=== PATIENT | female | born 1980 | race Caucasian/White ===

== ENCOUNTER 2016-12-28 16:40 | Inpatient (IN) | payer OTHER ==
[2016-12-28] MEDS ORDERED: NACL 0.9% 1000 ML 1,000 ML IV ONE ×2 (17:11→19:53)
[2016-12-28 17:43] LABS: Hemoglobin 8.2 gm/dl (10.1-14.3); Mean Corpuscular HGB Conc 34 % (30-34); Mean Corpuscular Hemoglobin 29 pg (28-32); Mean Corpuscular Volume 85 fl (79-97); Platelet Count 187 K/mm3 (140-440); Red Blood Count 2.82 M/mm3 (3.65-5.03); Red Cell Distribution Width 13.6 % (13.2-15.2); White Blood Count 11.2 K/mm3 (4.5-11.0)
[2016-12-28 18:29] LABS: Basophils % (Manual) 0 % (0.0-1.8); Blastocytes % (Manual) 0 %; Eosinophils % (Manual) 0 % (0.0-4.3); Total Cells Counted Percent 0
[2016-12-28 18:31] LABS: Anisocytosis 1+; Diff Status Complete; Large Platelets Few; Ovalocytes Few; Platelet Estimate Consistent w Auto
--- NOTE | 2016-12-28 18:49 | Ultrasound Report ---
FINAL REPORT EXAM: US OB \T\lt; = 14 WEEKS FETUS HISTORY: vag bleeding, TECHNIQUE: Transabdominal pelvic ultrasound was performed in multiple grayscale sonographic images were obtained of the uterus and adnexa PRIORS: Endovaginal ultrasound from 12/28/2016 FINDINGS: Uterus measures approximately 12.2 x 6.6 x 8 centimeters with endometrial stripe thickness measuring up to 30 millimeters. A gestational sac is not identified in the uterus, or elsewhere. Left ovary measures approximately 3.3 x 2.1 x 2 centimeters. There is an 18 millimeter cyst in the left ovary. Right ovary was not identified with certainty. IMPRESSION: 1. Endometrium appears thickened, but a gestational sac is not identified in the uterus, or elsewhere. Possibility of ectopic is not excluded. Recommend further evaluation with serial quantitative beta HCG and repeat ultrasound if indicated. 2. Nonvisualization of right ovary.
--- NOTE | 2016-12-28 18:49 | Ultrasound Report ---
FINAL REPORT EXAM: US OB TRANSVAGINAL HISTORY: vag bleeding, TECHNIQUE: Endovaginal ultrasound was performed in multiple grayscale sonographic images were obtained of the uterus and adnexa PRIORS: Transabdominal pelvic ultrasound from 12/28/2016 FINDINGS: Endometrial stripe thickness measures up to 3 centimeters. Gestational sac is not identified in the uterus or elsewhere in the images provided. Left ovary measures approximately 3 x 2.6 x 2.8 centimeters. There is an 18 millimeter cyst in the left ovary. Right ovary was not identified with certainty during the exam. IMPRESSION: 1. Endometrium appears thickened, but a gestational sac is not identified in the uterus, or elsewhere at this time. Possibility of ectopic is not excluded. Recommend further evaluation with serial quantitative beta HCG and repeat ultrasound if indicated. 2. Nonvisualization of right ovary. 3. Please refer to dictation from transabdominal pelvic ultrasound from 12/28/2016 for additional information.
--- NOTE | 2016-12-28 19:22 | Emergency Department Report ---
ED Female HPI - General Chief complaint: Vaginal Bleeding Stated complaint: MISCARRIAGE Time Seen by Provider: 12/28/16 17:10 Source: patient Mode of arrival: Ambulatory Limitations: Language Barrier - History of Present Illness Initial comments: 36 year old female presents to the hospital with vaginal bleeding. This is her third has 2 living children no previous miscarriages or abortions. Patient has been receiving care with [facility] in [place]. Patient had ultrasound showing a viable IUP but a subsequent ultrasound on the showed no heart tones. Patient was told she is having a miscarriage and the baby will pass. Today patient developed heavy vaginal bleeding and passed a fetus at home patient estimates that she was approximately 12 weeks . Patient has mild suprapubic pain at this time. She also reports multiple episodes of vomiting today with little by mouth intake. Patient's systolic pressure of 80 and a heart rate of 130. She received 2 L of normal saline and route. WILDLIFE PROTECTOR: [facility] in [place] - Related Data Previous Rx's Medication Instructions Recorded Last Taken Type Ibuprofen [Motrin] 800 mg PO Q8HR PRN #30 tablet 12/28/16 Unknown Rx Allergies Allergy/AdvReac Type Severity Reaction Status Date / Time No Known Allergies Allergy Verified 12/28/16 17:00 ED Review of Systems ROS: Stated complaint: MISCARRIAGE Other details as noted in HPI Comment: All other systems reviewed and negative Other: Constitutional: No fevers chills or weight loss Eyes: No eye pain visual changes or discharge ENT: No ear pain or throat pain Neck: Denies pain Respiratory: Denies cough wheezing shortness of breath Cardiovascular: Denies chest pain, palpitations, syncope Endocrine: Denies excessive sweating, intolerance to cold, increased thirst GI: As per HPI : As per HPI Musculoskeletal: Denies back pain, joint swelling Skin: Denies rash, lesions, erythema Neurologic: Denies headache, numbness. Generalized weakness Psychiatric: Denies suicidal ideation, hallucinations Hematological/lymphatic: Denies easy bruising, lymphadenopathy ED Past Medical Hx - Past Medical History Previous Medical History?: No - Surgical History Past Surgical History?: No - Social History Smoking Status: Never Smoker Substance Use Type: None - Medications Home Medications: Home Medications Medication Instructions Recorded Confirmed Last Taken Type Ibuprofen [Motrin] 800 mg PO Q8HR PRN #30 tablet 12/28/16 Unknown Rx ED Physical Exam - General Limitations: Language Barrier - Other Other exam information: General: No limitations, patient is alert in no acute distress Head exam: Atraumatic, normocephalic Eyes exam: Normal appearance, pupils equal reactive to light, extraocular movements intact ENT: Moist mucous membrane, normal oropharynx Neck exam: Normal inspection, full range of motion, no meningismus nontender Respiratory exam: Clear to auscultation bilateral, no wheezes, rales, crackles Cardiovascular: Normal rate and rhythm, normal heart sounds Abdomen: Soft, nondistended, and nontender, with normal bowel sounds, no rebound, or guarding Extremity: Full range of motion normal inspection no deformity Back: Normal Inspection, full range of motion, no tenderness Neurologic: Alert, oriented x3, cranial nerves intact, no motor or sensory deficit Psychiatric: normal affect, normal mood Skin: pale : Exam performed after discussion with CAR REFINISHER. Multiple large clots cleared from vaginal vault. bright red blood with moderate active bleeding ED Course Vital Signs 12/28/16 12/28/16 12/28/16 16:54 18:31 18:50 Temperature 98.0 F Pulse Rate 90 116 H Respiratory 19 18 18 Rate Blood Pressure 101/65 Blood Pressure 90/58 [Left] O2 Sat by Pulse 100 100 100 Oximetry 12/28/16 19:11 Temperature Pulse Rate 95 H Respiratory 18 Rate Blood Pressure Blood Pressure 116/78 [Left] O2 Sat by Pulse 100 Oximetry - Reevaluation(s) Reevaluation #1: 12/28/16 19:57 Clots were removed from vaginal vault. Patient had no pain to a clot removal however, patient developed significant pain afterwards. 0.5 of Dilaudid and Toradol 30 mg IV ordered. Additional normal saline ordered. Repeat CBC will be ordered. Patient be signed out to Dr Santos. Patient may be discharged if H& H stable, blood pressure systolic greater than 100, and heart rate less than 100 and pain control. If any of these are not he case but please call [facility] WILDLIFE PROTECTOR to discuss patient case and management. Awaiting Methergine administration Reevaluation #2: 12/28/16 20:09 Just prior to my going home and sign out to Dr. Santos nurse informed me that patient's pressure decreased to 67 systolic. Fourth liter is in progress. At this time other that patient needs admission to the hospital and will contact [facility] for admission. Patient still reports minimal bleeding. Pain is now minimal as well and patient just received Toradol and Dilaudid was held due to hypotension. Repeat CBC has been ordered and pending collection. Patient has been received Methergine - Consultations Consultation #1: 12/28/16 19:20 Case discussed with nurse practitioner concrete stone finisher for [facility] WILDLIFE PROTECTOR Jennifer Luis. Recommended clear out the clots dysuria bleeding improves and 1 IM shot of Methergine. 12/28/16 20:16 case discussed with and she will have Dr. Fletcher called me to admit the patient. ED Medical Decision Making - Lab Data Result diagrams: 12/28/16 17:13 Lab Results 12/28/16 12/28/16 12/28/16 Range/Units 17:13 17:13 17:13 WBC 11.2 H (4.5-11.0) K/mm3 RBC 2.82 L (3.65-5.03) M/mm3 Hgb 8.2 L (10.1-14.3) gm/dl Hct 24.0 L (30.3-42.9) % MCV 85 (79-97) fl MCH 29 (28-32) pg MCHC 34 (30-34) % RDW 13.6 (13.2-15.2) % Plt Count 187 (140-440) K/mm3 Add Manual Diff Complete Total Counted 100 Seg Neutrophils % Trading Assistant Seg Neuts % (Manual) 93.0 H (40.0-70.0) % Band Neutrophils % 4.0 % Lymphocytes % (Manual) 3.0 L (13.4-35.0) % Reactive Lymphs % (Man) 0 % Monocytes % (Manual) 0 (0.0-7.3) % Eosinophils % (Manual) 0 (0.0-4.3) % Basophils % (Manual) 0 (0.0-1.8) % Metamyelocytes % 0 % Myelocytes % 0 % Promyelocytes % 0 % Blast Cells % 0 % Nucleated RBC % Not Reportable Seg Neutrophils # Man 10.4 H (1.8-7.7) K/mm3 Band Neutrophils # 0.4 K/mm3 Lymphocytes # (Manual) 0.3 L (1.2-5.4) K/mm3 Abs React Lymphs (Man) 0.0 K/mm3 Monocytes # (Manual) 0.0 (0.0-0.8) K/mm3 Eosinophils # (Manual) 0.0 (0.0-0.4) K/mm3 Basophils # (Manual) 0.0 (0.0-0.1) K/mm3 Metamyelocytes # 0.0 K/mm3 Myelocytes # 0.0 K/mm3 Promyelocytes # 0.0 K/mm3 Blast Cells # 0.0 K/mm3 WBC Morphology Not Reportable Hypersegmented Neuts Not Reportable Hyposegmented Neuts Not Reportable Hypogranular Neuts Not Reportable Smudge Cells Not Reportable Toxic Granulation Not Reportable Toxic Vacuolation Not Reportable Dohle Bodies Not Reportable Pelger-Huet Anomaly Not Reportable Ivan Rods Not Reportable Platelet Estimate Consistent w auto Clumped Platelets Not Reportable Plt Clumps, EDTA Not Reportable Large Platelets Few Giant Platelets Not Reportable Platelet Satelliting Not Reportable Plt Morphology Comment Not Reportable RBC Morphology Not Reportable Dimorphic RBCs Not Reportable Polychromasia Not Reportable Hypochromasia Not Reportable Poikilocytosis Not Reportable Anisocytosis 1+ Microcytosis Not Reportable Macrocytosis Not Reportable Spherocytes Not Reportable Pappenheimer Bodies Not Reportable Sickle Cells Not Reportable Target Cells Not Reportable Tear Drop Cells Not Reportable Ovalocytes Few Helmet Cells Not Reportable Hernandez-Anaconda Bodies Not Reportable [place] Rings Not Reportable [place] Cells Not Reportable Bite Cells Not Reportable Crenated Cell Not Reportable Elliptocytes Not Reportable Acanthocytes (Spur) Not Reportable Rouleaux Not Reportable Hemoglobin C Crystals Not Reportable Schistocytes Not Reportable Malaria parasites Not Reportable [place] Bodies Not Reportable Hem Pathologist Commnt No HCG, Quant 502.5 H (0-4) mIU/mL Urine Color (Yellow) Urine Turbidity (Clear) Urine pH (5.0-7.0) Ur Specific [place] (1.003-1.030) Urine Protein (Negative) mg/dL Urine Glucose (UA) (Negative) mg/dL Urine Ketones (Negative) mg/dL Urine Blood (Negative) Urine Nitrite (Negative) Urine Bilirubin (Negative) Urine Urobilinogen (<2.0) mg/dL Ur Leukocyte Esterase (Negative) Urine WBC (Auto) (0.0-6.0) /HPF Urine RBC (Auto) (0.0-6.0) /HPF U Epithel Cells (Auto) (0-13.0) /HPF Urine Mucus /HPF Blood Type O POSITIVE Antibody Screen TNR JORGE L Antibody Screen Negative 12/28/16 Range/Units 19:02 WBC (4.5-11.0) K/mm3 RBC (3.65-5.03) M/mm3 Hgb (10.1-14.3) gm/dl Hct (30.3-42.9) % MCV (79-97) fl MCH (28-32) pg MCHC (30-34) % RDW (13.2-15.2) % Plt Count (140-440) K/mm3 Add Manual Diff Total Counted Seg Neutrophils % Seg Neuts % (Manual) (40.0-70.0) % Band Neutrophils % % Lymphocytes % (Manual) (13.4-35.0) % Reactive Lymphs % (Man) % Monocytes % (Manual) (0.0-7.3) % Eosinophils % (Manual) (0.0-4.3) % Basophils % (Manual) (0.0-1.8) % Metamyelocytes % % Myelocytes % % Promyelocytes % % Blast Cells % % Nucleated RBC % Seg Neutrophils # Man (1.8-7.7) K/mm3 Band Neutrophils # K/mm3 Lymphocytes # (Manual) (1.2-5.4) K/mm3 Abs React Lymphs (Man) K/mm3 Monocytes # (Manual) (0.0-0.8) K/mm3 Eosinophils # (Manual) (0.0-0.4) K/mm3 Basophils # (Manual) (0.0-0.1) K/mm3 Metamyelocytes # K/mm3 Myelocytes # K/mm3 Promyelocytes # K/mm3 Blast Cells # K/mm3 WBC Morphology Hypersegmented Neuts Hyposegmented Neuts Hypogranular Neuts Smudge Cells Toxic Granulation Toxic Vacuolation Dohle Bodies Pelger-Huet Anomaly Ivan Rods Platelet Estimate Clumped Platelets Plt Clumps, EDTA Large Platelets Giant Platelets Platelet Satelliting Plt Morphology Comment RBC Morphology Dimorphic RBCs Polychromasia Hypochromasia Poikilocytosis Anisocytosis Microcytosis Macrocytosis Spherocytes Pappenheimer Bodies Sickle Cells Target Cells Tear Drop Cells Ovalocytes Helmet Cells Hernandez-Anaconda Bodies [place] Rings [place] Cells Bite Cells Crenated Cell Elliptocytes Acanthocytes (Spur) Rouleaux Hemoglobin C Crystals Schistocytes Malaria parasites Polo Bodies Hem Pathologist Commnt HCG, Quant (0-4) mIU/mL Urine Color Yellow (Yellow) Urine Turbidity Clear (Clear) Urine pH 6.0 (5.0-7.0) Ur Specific [place] 1.012 (1.003-1.030) Urine Protein 30 mg/dl (Negative) mg/dL Urine Glucose (UA) 50 (Negative) mg/dL Urine Ketones 20 (Negative) mg/dL Urine Blood Lg (Negative) Urine Nitrite Neg (Negative) Urine Bilirubin Neg (Negative) Urine Urobilinogen < 2.0 (<2.0) mg/dL Ur Leukocyte Esterase Neg (Negative) Urine WBC (Auto) 4.0 (0.0-6.0) /HPF Urine RBC (Auto) 69.0 (0.0-6.0) /HPF U Epithel Cells (Auto) < 1.0 (0-13.0) /HPF Urine Mucus 1+ /HPF Blood Type Antibody Screen JORGE L Antibody Screen - Radiology Data Radiology results: report reviewed Transvaginal/pelvic ultrasound: No IUP. Thickened endometrium. Right ovary not visualized - Medical Decision Making Patient be signed out to Dr Santos. Patient may be discharged if H&H stable, blood pressure systolic greater than 100, and heart rate less than 100 and pain control. If any of these are not he case but please call [facility] WILDLIFE PROTECTOR to discuss patient case and management. Awaiting Methergine administration - Differential Diagnosis miscarriage, threatened , anemia Critical Care Time: No Critical care attestation.: If time is entered above; I have spent that time in minutes in the direct care of this critically ill patient, excluding procedure time. ED Disposition Clinical Impression: Spontaneous miscarriage, Hypotension, Anemia Disposition: OP ADMIT IP TO THIS HOSP Is pt being admited?: Yes Does the pt Need Aspirin: No Condition: Stable Prescriptions: Ibuprofen [Motrin] 800 mg PO Q8HR PRN #30 tablet PRN Reason: Pain Time of Disposition: 20:10 (admit [facility] hand icer) Print Language: ARGENTINE
[2016-12-28] MEDS ORDERED: METHERGINE IM ONE (19:23)
[2016-12-28 19:38] LABS: Bilirubin,Urine NEG (Negative); Blood,Urine LG (Negative); Ketones,Urine 20 mg/dL (Negative); Leukocyte Esterase,Urine NEG (Negative); Mucus,Urine 1+ /HPF; Nitrite,Urine NEG (Negative); Urobilinogen,Urine < 2.0 mg/dL (<2.0)
[2016-12-28] MEDS ORDERED: DILAUDID IV ONE (19:56)
[2016-12-28] MEDS ORDERED: TORADOL IV ONE (19:59)
[2016-12-28 20:44] LABS: Hemoglobin 6.3 gm/dl (10.1-14.3); Mean Corpuscular HGB Conc 34 % (30-34); Mean Corpuscular Hemoglobin 30 pg (28-32); Mean Corpuscular Volume 89 fl (79-97); Platelet Count 186 K/mm3 (140-440); Red Blood Count 2.11 M/mm3 (3.65-5.03); Red Cell Distribution Width 13.4 % (13.2-15.2); White Blood Count 9.9 K/mm3 (4.5-11.0)
[2016-12-28 20:46] LABS: Hematocrit 18.7 % (30.3-42.9)
[2016-12-28] MEDS ORDERED: NACL 0.9% 500 ML 500 ML IV ONE (21:00)
[2016-12-28] MEDS ORDERED: COLACE PO PRN (21:19)
[2016-12-28] MEDS ORDERED: ZOFRAN IV PRN (21:19)
[2016-12-28] MEDS ORDERED: TYLENOL PO PRN (21:19)
[2016-12-28] MEDS ORDERED: MOTRIN PO PRN (21:22)
[2016-12-28] MEDS ORDERED: LACTATED RINGERS 1,000 ML IV SCH (22:00)
[2016-12-28] MEDS ORDERED: NACL 0.9% 500 ML 500 ML ONE (22:05)
[2016-12-28] MEDS: METHERGINE PO SCH (22:23)
--- NOTE | 2016-12-28 23:21 | Event Note ---
Date: 12/28/16 20:23 Exam patient patient's hemoglobin is 6.3 2 units of RBCs patient's pain is controlled we'll reevaluate patient Patient is feeling better after the 2 units of blood patient is being admitted upstairs she has no complaints. Blood pressure is 110/60 heart rate is 98 respirations 14 satting 90% on room air.
--- NOTE | 2016-12-28 23:45 | Short Stay Summary ---
<ALLY HAYS - Last Filed: 12/29/16 07:31> Short Stay Documentation - Allergies and Medications Current Medications: Allergies No Known Allergies Allergy (Verified 12/28/16 17:00) Home Medications Medication Instructions Recorded Confirmed Last Taken Type Ibuprofen [Motrin] 800 mg PO Q8HR PRN #30 tablet 12/28/16 Unknown Rx Active Medications Acetaminophen (Tylenol) 650 mg PO Q4H PRN PRN Reason: Pain MILD(1-3)/Fever >100.5/BRANTLEY Docusate Sodium (Colace) 100 mg PO Q12H PRN PRN Reason: Constipation Lactated Ringer's (Lactated Ringers) 1,000 mls @ 125 mls/hr IV DIRECT ARIANA Last Admin: 12/28/16 23:41 Dose: 125 mls/hr Ibuprofen (Motrin) 800 mg PO Q8H PRN PRN Reason: Pain, Moderate (4-6) Last Admin: 12/29/16 00:20 Dose: 800 mg Methylergonovine Maleate (Methergine) 0.2 mg PO Q6H ARIANA Last Admin: 12/29/16 05:46 Dose: 0.2 mg Multivitamins/Iron/Calcium ( Vitamin) 1 each PO QDAY ARIANA Ondansetron HCl (Zofran) 4 mg IV Q6H PRN PRN Reason: Nausea And Vomiting - Hospital course Hospital course: Hospital course was unremarkable. Patient received 2 units packed red blood cells her hemoglobin and hematocrit improved from ~ 6/19 to ~ 9/25. Her bleeding has resolved she is discharged home in stable condition - Disposition Condition at discharge: Good Disposition: DC-01 TO HOME OR SELFCARE - Discharge Diagnoses (1) Anemia Status: Acute QualifierTitle: Anemia type: A Iron deficiency anemia type: I Vitamin B12 deficiency anemia type: V Folate deficiency anemia type: F Bone marrow failure anemia type: B Hemolytic anemia type: H Other causes of anemia: acute posthemorrhagic Chronic kidney disease stage: C Qualified Code(s): D62 - Acute posthemorrhagic anemia (2) Hypotension Status: Acute QualifierTitle: Hypotension type: H Trimester: T (3) Spontaneous miscarriage Status: Acute Short Stay Discharge Plan Activity: advance as tolerated, other (pelvic rest 2 weeks) Weight Bearing Status: Weight Bear as Tolerated Diet: regular Follow up with: PRIMARY CARE, [Primary Care Provider] - 7 Days Prescriptions: Ibuprofen [Motrin] 800 mg PO Q8HR PRN #30 tablet PRN Reason: Pain Multivitamin with Iron [Multivitamins with Iron] 1 each PO DAILY #30 tablet <VITALIYLEE - Last Filed: 12/29/16 07:37> Short Stay Documentation Date of service: 12/28/16 Narrative H&P: 36 year old female presents to the hospital with vaginal bleeding. This is her third has 2 living children no previous miscarriages or abortions. Patient has been receiving care with [facility] in [place]. Patient had ultrasound showing a viable IUP but a subsequent ultrasound on the showed no heart tones. Patient was told she is having a miscarriage and the baby will pass. Today patient developed heavy vaginal bleeding and passed a fetus at home patient estimates that she was approximately 12 weeks . Patient has mild suprapubic pain at this time. She also reports multiple episodes of vomiting today with little by mouth intake. Patient's systolic pressure of 80 and a heart rate of 130. She received 2 L of normal saline and route. SENIOR PUBLICATIONS SPECIALIST: Earlene ortiz in [place] - History Principal diagnosis: s/p spontaneous H&P: obtained from office Past Medical History: No medical history Social history: no significant social history - Allergies and Medications Current Medications: Allergies No Known Allergies Allergy (Verified 12/28/16 17:00) Home Medications Medication Instructions Recorded Confirmed Last Taken Type Ibuprofen [Motrin] 800 mg PO Q8HR PRN #30 tablet 12/28/16 Unknown Rx Active Medications Acetaminophen (Tylenol) 650 mg PO Q4H PRN PRN Reason: Pain MILD(1-3)/Fever >100.5/BRANTLEY Docusate Sodium (Colace) 100 mg PO Q12H PRN PRN Reason: Constipation Lactated Ringer's (Lactated Ringers) 1,000 mls @ 125 mls/hr IV DIRECT ARIANA Last Admin: 12/28/16 23:41 Dose: 125 mls/hr Ibuprofen (Motrin) 800 mg PO Q8H PRN PRN Reason: Pain, Moderate (4-6) Methylergonovine Maleate (Methergine) 0.2 mg PO Q6H ARIANA Last Admin: 12/28/16 22:23 Dose: Not Given Multivitamins/Iron/Calcium ( Vitamin) 1 each PO QDAY ARIANA Ondansetron HCl (Zofran) 4 mg IV Q6H PRN PRN Reason: Nausea And Vomiting - Physical exam General appearance: no acute distress Integumentary: no rash Lungs: Clear to auscultation Breasts: deferred Heart: Regular rate Gastrointestinal: normal Female Genitourinary: deferred Rectal Exam: deferred Extremities: No edema Neurological: Normal gait, Normal speech
[2016-12-29] MEDS: METHERGINE PO SCH ×2 (00:21→05:46)
[2016-12-29 06:39] LABS: Hematocrit 25.4 % (30.3-42.9); Hemoglobin 8.9 gm/dl (10.1-14.3)
--- NOTE | 2016-12-29 07:31 | Progress Note ---
Assessment and Plan HD # 2 s/p SAB w/ Acute symptomatic blood loss and anemia P: -Discharge home -Follow up in clinic in 1-2 weeks - Patient Problems (1) Anemia Current Visit: Yes Status: Acute Qualifiers: Anemia type: A Iron deficiency anemia type: I Vitamin B12 deficiency anemia type: V Folate deficiency anemia type: F Bone marrow failure anemia type: B Hemolytic anemia type: H Other causes of anemia: acute posthemorrhagic Chronic kidney disease stage: C Qualified Code(s): D62 - Acute posthemorrhagic anemia (2) Hypotension Current Visit: Yes Status: Acute Qualifiers: Hypotension type: H Trimester: T (3) Spontaneous miscarriage Current Visit: Yes Status: Acute Subjective - Subjective Date of service: 12/29/16 Principal diagnosis: s/p spontaneous Interval history: She seen and examined, stable doing well. H&H improved to 9 of 25 after 2 units red blood cells. She has scanty vaginal bleeding Patient reports: appetite normal, voiding normally, pain well controlled, flatus , ambulating normally, no dizzy ambulation, no nauseated Objective - Vital Signs Latest vital signs: Vital Signs Temp Pulse Resp BP Pulse Ox 12/29/16 06:49 99 F 86 18 99/63 12/29/16 00:48 98.3 F 100 H 18 100/63 12/29/16 00:20 16 12/29/16 00:18 98.6 F 97 H 16 103/68 12/28/16 23:48 98.6 F 106 H 18 96/63 12/28/16 23:33 98.2 F 103 H 18 100/64 12/28/16 23:17 98.2 F 102 H 18 99/63 99 12/28/16 22:43 98.2 F 103 H 18 95/66 99 12/28/16 22:25 98.9 F 105 H 18 94/60 12/28/16 22:10 98.9 F 104 H 18 94/55 100 12/28/16 21:30 105 H 12 80/56 100 12/28/16 21:20 107 H 18 100 Intake and Output 12/28/16 12/29/16 12/29/16 22:59 06:59 14:59 Intake Total 0 780 Output Total 450 Balance 0 330 Intake: Intake, Free Water 280 Blood Product 0 500 Leukoreduced Red Blood 0 250 Cells Unit [id number] Leukoreduced Red Blood 250 Cells Unit [id number] Output: Urine 450 Void 450 Other: Total, Output Amount 450 Voiding Method Toilet - Exam Abdomen: Present: normal appearance, soft. Absent: distention, tenderness, guarding, rigidity Uterus: Absent: tenderness Extremities: Present: normal - Labs Labs: Abnormal lab results 12/29/16 Range/Units 05:59 Hgb 8.9 L (10.1-14.3) gm/dl Hct 25.4 L D (30.3-42.9) %
[2016-12-29 08:41] VITALS: BP 100/60
[2016-12-29] MEDS ORDERED: PRENATAL VITAMIN PO SCH (10:00)
== END 2016-12-29 11:00 | disposition home or self-care (01) | DRG 779 ==
LOC: ED 16:40 → OB 21:19
PROVIDERS: ADMIT Obstetrics & Gynecology; ATTEND Obstetrics & Gynecology
PROC: 30233N1 Transfusion of Nonautologous Red Blood Cells into Peripheral Vein, Percutaneous Approach (ICD-10-PCS; principal; 2016-12-28)
DX: O03.9 Complete or unspecified spontaneous abortion without complication (principal); D62 Acute posthemorrhagic anemia; I95.9 Hypotension, unspecified; Z3A.12 12 weeks gestation of pregnancy
CPT/HCPCS: 36415; 76801; 76817; 81001; 84702; 85007; 85014; 85018; 85025; 85027; 86850; 86900; 86901; 86920; 96361; 96372; 96374; 96375; J1170; J1885; J2210; J7030; J7040; J7120; P9016